=== PATIENT | female | born 1965 | race African-American/Black ===

== ENCOUNTER 2018-11-18 02:48 | Inpatient (IN) | payer OTHER ==
[~2018-11-18] VITALS: Ht 162.6 cm; Wt 82.2 kg
[2018-11-18] MEDS ORDERED: SODIUM CHLORIDE 0.9% 1,000 ML IV ONE (03:51)
[2018-11-18] MEDS ORDERED: FAMOTIDINE 20MG/2ML VIAL IV STA (03:51)
[2018-11-18] MEDS ORDERED: ACETAMINOPHEN 325MG TABLET PO ONE (04:00)
[2018-11-18 04:33] LABS: BASOPHILS % 2.5 % (0.0-2.0); EOSINOPHILS % 1.2 % (0.0-5.0); HEMATOCRIT. 42.7 % (36.0-48.0); HEMOGLOBIN. 13.9 g/dL (12.0-16.0); LYMPHOCYTES % 42.1 % (20.0-50.0); MEAN CORPUSCULAR HEMOGLOBIN 29.1 pg (28.0-32.0); MEAN CORPUSCULAR VOLUME 89.1 fL (81.0-99.0); MEAN PLATELET VOLUME 9.9 fl (7.4-10.4); MONOCYTES % 3.9 % (2.0-8.0); NEUTROPHILS % 50.3 % (40.0-76.0); PLATELET 340 x1000/uL (130-400); RED BLOOD CELL COUNT 4.79 mill/uL (4.2-5.4); RED CELL DISTRIBUTION WIDTH 14.6 % (11.6-14.6)
[2018-11-18 04:38] LABS: CHLORIDE 101 mEq/L (98-107)
[2018-11-18 04:43] LABS: CLARITY URINE CLEAR (CLEAR); COLOR URINE YELLOW (YELLOW); KETONES URINE NEGATIVE (NEGATIVE); LEUKOCYTE ESTERASE URINE TRACE (NEGATIVE); NITRITE URINE NEGATIVE (NEGATIVE); OCCULT BLOOD URINE NEGATIVE (NEGATIVE); PROTEIN URINE 1+ (NEGATIVE); SPECIFIC GRAVITY URINE 1.034 (1.005-1.030); UROBILINOGEN URINE 0.2 E.U./dL (0.2-1.0)
[2018-11-18 04:49] LABS: BETA HYDROXYBUTYRATE 0.2 mMol/L (0.0-0.3)
[2018-11-18 05:05] LABS: PROTHROMBIN TIME 9.8 sec (9.1-11.1)
[2018-11-18] MEDS ORDERED: INSULIN REGULAR (HUMULIN R) UD 100 UNITS/ML SYR SUBCUT ONE (06:00)
[2018-11-18] MEDS ORDERED: INSULIN REGULAR (HUMULIN R) 300UNITS/3ML SUBCUT NR (06:15)
[2018-11-18] MEDS ORDERED: BLOOD SUGAR DIAGNOSTIC STRIP TEST SCH (09:40)
[2018-11-18] MEDS ORDERED: INSULIN LISPRO (HIGH DOSE) 100 UNITS/ML SUBCUT SCH (09:40)
[2018-11-18 09:44] LABS: CREATINE KINASE 40 IU/L (26-192)
[2018-11-18 09:45] LABS: CREATINE KINASE MB FRACTION < 1.0 ng/mL (0.5-3.6)
[2018-11-18] MEDS ORDERED: DEXTROSE 50% WATER 50ML SYRINGE IV PRN (09:45)
[2018-11-18] MEDS ORDERED: GLIPIZIDE 5MG TABLET PO SCH (09:45)
[2018-11-18] MEDS ORDERED: METFORMIN HCL 500MG TABLET PO SCH (09:45)
[2018-11-18] MEDS: HYDROCODONE/ACETAMINOPHEN 5/325MG TABLET PO PRN ×3 (10:50→23:49)
[2018-11-19] VITALS (7 sets, daily range): BP systolic 142–181; BP diastolic 83–97
[2018-11-19] MEDS ORDERED: S350 PO (01:20)
[2018-11-19] MEDS ORDERED: SIMV20TA6 PO (01:20)
[2018-11-19] MEDS ORDERED: GLIM4TAB2 PO (01:20)
[2018-11-19] MEDS ORDERED: HYDR25TA PO (01:20)
[2018-11-19] MEDS ORDERED: AMLO10TA80 PO (01:20)
[2018-11-19] MEDS ORDERED: GABA-290 PO (01:20)
[2018-11-19] MEDS ORDERED: TAMS0.4C31 PO (01:20)
[2018-11-19] MEDS ORDERED: DIPH50CA38 PO (01:20)
[2018-11-19] MEDS ORDERED: LOSA100T14 PO (01:20)
[2018-11-19] MEDS ORDERED: METF-414 PO (01:20)
[2018-11-19] MEDS ORDERED: DIPHENHYDRAMINE 50MG CAPSULE PO PRN (01:56)
[2018-11-19] MEDS: HYDROCODONE/ACETAMINOPHEN 5/325MG TABLET PO PRN ×2 (06:04→22:20)
[2018-11-19] MEDS: BLOOD SUGAR DIAGNOSTIC STRIP TEST SCH ×4 (06:08→21:46)
[2018-11-19] MEDS: GLIPIZIDE 5MG TABLET PO SCH ×2 (06:11→17:20)
[2018-11-19 07:23] LABS: CREATINE KINASE 43 IU/L (26-192)
[2018-11-19 07:24] LABS: CREATINE KINASE MB FRACTION 1.1 ng/mL (0.5-3.6)
[2018-11-19] MEDS: INSULIN LISPRO (HIGH DOSE) 100 UNITS/ML SUBCUT SCH ×4 (07:50→21:54)
[2018-11-19] MEDS ORDERED: METFORMIN HCL 500MG TABLET PO SCH (07:50)
[2018-11-19] MEDS ORDERED: GLIMEPIRIDE 2MG TABLET PO SCH (07:50)
[2018-11-19] MEDS: GABAPENTIN 300MG CAPSULE PO SCH ×2 (08:58→17:52)
[2018-11-19] MEDS: LOSARTAN POTASSIUM 100 MG TABLET PO SCH (08:58)
[2018-11-19] MEDS: HYDROCHLOROTHIAZIDE 25MG TABLET PO SCH (08:59)
[2018-11-19] MEDS: METFORMIN HCL 500MG TABLET PO SCH ×2 (08:59→17:52)
[2018-11-19] MEDS: AMLODIPINE 10MG TABLET PO SCH (08:59)
[2018-11-19] MEDS ORDERED: MEDICATION NOT ON FORMULARY EA (Simvastatin 20 MG) PO SCH (09:00)
[2018-11-19] MEDS: ENOXAPARIN 40MG/0.4ML SYR SUBCUT SCH (09:01)
[2018-11-19] MEDS ORDERED: CLONIDINE 0.2MG TABLET PO PRN ×2 (11:30)
[2018-11-19] MEDS ORDERED: CLONIDINE 0.1MG TABLET PO PRN (11:58)
[2018-11-19 17:21] LABS: CREATINE KINASE 48 IU/L (26-192)
[2018-11-19 17:22] LABS: CREATINE KINASE MB FRACTION < 1.0 ng/mL (0.5-3.6)
[2018-11-19] MEDS ORDERED: ATORVASTATIN CALCIUM 10MG TABLET PO SCH (21:00)
[2018-11-19 22:31] LABS: *AMPHETAMINES SCREEN URINE NEGATIVE (NEGATIVE); *BARBITURATES SCREEN URINE NEGATIVE (NEGATIVE); *BENZODIAZEPINES SCREEN URINE NEGATIVE (NEGATIVE)
[2018-11-19 22:32] LABS: *COCAINE SCREEN URINE PRESUMTIVE POSITIVE (NEGATIVE); CANNABINOID URINE SCREEN NEGATIVE (NEGATIVE); METHADONE URINE SCREEN NEGATIVE (NEGATIVE); OPIATES URINE SCREEN PRESUMTIVE POSITIVE (NEGATIVE); PHENCYCLIDINE URINE SCREEN NEGATIVE (NEGATIVE)
[2018-11-20] VITALS: BP 137/80
[2018-11-20 04:00] VITALS: BP 158/86
[2018-11-20] MEDS: HYDROCODONE/ACETAMINOPHEN 5/325MG TABLET PO PRN ×2 (05:10→15:03)
[2018-11-20] MEDS: GLIPIZIDE 5MG TABLET PO SCH ×2 (07:20→08:39)
[2018-11-20] MEDS: BLOOD SUGAR DIAGNOSTIC STRIP TEST SCH ×2 (07:20→13:00)
[2018-11-20] MEDS ORDERED: GLIMEPIRIDE 2MG TABLET PO SCH (07:50)
[2018-11-20] MEDS: INSULIN LISPRO (HIGH DOSE) 100 UNITS/ML SUBCUT SCH ×2 (07:50→14:04)
[2018-11-20 08:00] VITALS: BP 150/80
[2018-11-20 08:04] LABS: BASOPHILS % 0.5 % (0.0-2.0); EOSINOPHILS % 1.9 % (0.0-5.0); HEMATOCRIT. 37.9 % (36.0-48.0); HEMOGLOBIN. 12.3 g/dL (12.0-16.0); LYMPHOCYTES % 46.5 % (20.0-50.0); MEAN CORPUSCULAR HEMOGLOBIN 29.1 pg (28.0-32.0); MEAN CORPUSCULAR VOLUME 89.6 fL (81.0-99.0); MEAN PLATELET VOLUME 10.1 fl (7.4-10.4); MONOCYTES % 5.2 % (2.0-8.0); NEUTROPHILS % 45.9 % (40.0-76.0); PLATELET 270 x1000/uL (130-400); RED BLOOD CELL COUNT 4.22 mill/uL (4.2-5.4); RED CELL DISTRIBUTION WIDTH 14.2 % (11.6-14.6)
[2018-11-20 08:23] LABS: CHLORIDE 103 mEq/L (98-107)
[2018-11-20 08:30] LABS: LDL CHOLESTEROL 162 mg/dL (5-100)
[2018-11-20 08:33] LABS: HDL CHOLESTEROL 30 mg/dL (40-59)
[2018-11-20] MEDS: METFORMIN HCL 500MG TABLET PO SCH (08:39)
[2018-11-20] MEDS: ENOXAPARIN 40MG/0.4ML SYR SUBCUT SCH (08:40)
[2018-11-20] MEDS: HYDROCHLOROTHIAZIDE 25MG TABLET PO SCH (08:40)
[2018-11-20] MEDS: LOSARTAN POTASSIUM 100 MG TABLET PO SCH (08:40)
[2018-11-20] MEDS: AMLODIPINE 10MG TABLET PO SCH (08:40)
[2018-11-20] MEDS: GABAPENTIN 300MG CAPSULE PO SCH (08:40)
[2018-11-20 12:00] VITALS: BP 144/70
[2018-11-20 12:32] VITALS: BP 114/79
[2018-11-20] MEDS ORDERED: MAGNESIUM 2 G PREMIX 50 ML IV NR (13:30)
[2018-11-20] MEDS ORDERED: POTASSIUM CHLORIDE 20MEQ/PACKET PO NR (13:30)
[2018-11-20 15:03] VITALS: BP 140/70
== END 2018-11-20 17:00 | disposition home or self-care (01) | DRG 203 ==
LOC: ER 02:48 → SUPCPDRO 16:02 → ENRESERV 19:34 → 6WST 23:02
PROVIDERS: ADMIT Internal Medicine; ATTEND Internal Medicine
DX: M94.0 Chondrocostal junction syndrome [Tietze] (principal); E11.42 Type 2 diabetes mellitus with diabetic polyneuropathy; E11.65 Type 2 diabetes mellitus with hyperglycemia; E44.1 Mild protein-calorie malnutrition; J45.901 Unspecified asthma with (acute) exacerbation; R07.89 Other chest pain; M79.7 Fibromyalgia; I10 Essential (primary) hypertension; F17.200 Nicotine dependence, unspecified, uncomplicated; F14.10 Cocaine abuse, uncomplicated; F12.90 Cannabis use, unspecified, uncomplicated; G43.909 Migraine, unspecified, not intractable, without status migrainosus; Z82.49 Family history of ischemic heart disease and other diseases of the circulatory system; H91.90 Unspecified hearing loss, unspecified ear; Z90.49 Acquired absence of other specified parts of digestive tract; Z79.84 Long term (current) use of oral hypoglycemic drugs; E87.1 Hypo-osmolality and hyponatremia
CPT/HCPCS: 36415; 71045; 80048; 80061; 80305; 82010; 82550; 82553; 82962; 83036; 83735; 83880; 84484; 85379; 93005; 93306; 93970; 96372; 96374; 99285; J1650; J1815; J3475; J3490; J7030; J7050

== ENCOUNTER 2021-07-14 11:29 | Emergency (ER) | payer MEDICAID, OTHER ==
[~2021-07-14] VITALS: Ht 162.6 cm; Wt 60.0 kg
[~2021-07-14 11:29] MED LIST: AMLO10TA80 PO; CARI350T28 PO; DIPH50CA38 PO; GABA-290 PO; GLIM4TAB36 PO; HYDR25TA PO; LOSA100T32 PO; METF-414 PO; SIMV-43 PO; TAMS0.4C31 PO
[2021-07-14] MEDS ORDERED: MORPHINE SULFATE 4 MG/ML CPJ (NOT FOR IM USE) IV SCH (12:15)
[2021-07-14] MEDS ORDERED: METOCLOPRAMIDE HCL 10MG/2ML VIAL IV SCH (12:15)
[2021-07-14] MEDS ORDERED: SODIUM CHLORIDE 0.9% 250 ML IV ONE (12:15)
[2021-07-14] MEDS ORDERED: MORPHINE SULFATE 2 MG/ML CPJ (NOT FOR IM USE) IV SCH (12:32)
[2021-07-14 12:39] LABS: CHLORIDE 108 mEq/L (98-107)
[2021-07-14 12:43] LABS: ETHANOL BLOOD < 10 mg/dL
[2021-07-14 12:49] LABS: BASOPHILS % 1.5 % (0.0-2.0); EOSINOPHILS % 1.7 % (0.0-5.0); HEMATOCRIT. 40.4 % (36.0-48.0); HEMOGLOBIN. 13.4 g/dL (12.0-16.0); LYMPHOCYTES % 50.3 % (20.0-50.0); MEAN CORPUSCULAR VOLUME 87.5 fL (81.0-99.0); MEAN PLATELET VOLUME 9.4 fl (7.4-10.4); MONOCYTES % 4.6 % (2.0-8.0); NEUTROPHILS % 41.9 % (40.0-76.0); PLATELET 294 x1000/uL (130-400); RED BLOOD CELL COUNT 4.61 mill/uL (4.2-5.4); RED CELL DISTRIBUTION WIDTH 14.5 % (11.6-14.6)
[2021-07-14] MEDS ORDERED: HYDRALAZINE 20MG/ML VIAL IV PRN (14:15)
[2021-07-14] MEDS ORDERED: HYDRALAZINE HCL 25MG TABLET PO SCH (14:15)
[2021-07-14] MEDS ORDERED: AMLODIPINE 10MG TABLET PO SCH ×2 (15:00→21:00)
[2021-07-14] MEDS ORDERED: POTASSIUM CHLORIDE 20MEQ TABLET SR PO NR (15:00)
[2021-07-14 16:00] VITALS: BP 163/82
[2021-07-14] MEDS ORDERED: IOHEXOL-350 100 ML BOTTLE ONE (16:39)
[2021-07-14] MEDS ORDERED: METO5TAB86 MT (17:14)
[2021-07-14] MEDS ORDERED: LOSARTAN POTASSIUM 25 MG TABLET PO SCH (18:00)
[2021-07-14] MEDS ORDERED: AMLODIPINE 5MG TABLET PO SCH (21:00)
[2021-07-14] MEDS ORDERED: HYDRALAZINE HCL 50MG TABLET PO SCH (22:00)
== END 2021-07-14 18:12 | disposition home or self-care (01) ==
LOC: ER 11:29
DX: I11.9 Hypertensive heart disease without heart failure (principal); G43.909 Migraine, unspecified, not intractable, without status migrainosus; E11.9 Type 2 diabetes mellitus without complications; E78.00 Pure hypercholesterolemia, unspecified; F12.10 Cannabis abuse, uncomplicated; Z91.14 Patient's other noncompliance with medication regimen; Z90.49 Acquired absence of other specified parts of digestive tract; Z86.73 Personal history of transient ischemic attack (TIA), and cerebral infarction without residual deficits; Z79.84 Long term (current) use of oral hypoglycemic drugs
CPT/HCPCS: 36415; 70496; 70498; 71045; 80053; 80320; 83880; 84484; 85025; 93005; 96374; 96375; 99285; J2270; J2765; Q9967; Z7610; G0480